=== PATIENT | female | born 1950 | race Caucasian/White ===

== ENCOUNTER 2016-12-04 09:47 | Emergency (ER) | payer OTHER ==
[~2016-12-04] VITALS: Ht 160 cm; Wt 80.0 kg
[~2016-12-04 09:47] MED LIST: ALBU8.5H3 INH; ASPI-781 PO; ATOR20TA38 PO; CLOP75TA27 PO; GABA100C14 PO; GLIP5TAB13 PO; ISOS20TA19 PO; LORA10TA3 PO; METF500T4 PO; METO-448 PO; OMEP20CA9 PO; PRED20TA PO; SERT100T PO
[2016-12-04 09:50] VITALS: Ht 160 cm; Wt 80.0 kg
--- NOTE | 2016-12-04 12:08 | RADRPT ---
PROCEDURE: XR Left Shoulder. CLINICAL INDICATION: Trauma due to a fall. Left shoulder pain. TECHNIQUE: Three views. Frontal internal rotation, frontal external rotation, and scapular Y-view . COMPARISON: No prior study is available for comparison. FINDINGS: There is no fracture or dislocation. The soft tissues are normal. Articular surfaces are intact. There is no lytic or blastic lesion. There is no radiopaque foreign body. IMPRESSION: 1. Normal images of the left shoulder. RPTAT: QQ .Gustavo Salgeuro MD, MD Date Time Electronically viewed and signed by .Gustavo Salguero MD, on 12/04/2016 12:07 .R/
--- NOTE | 2016-12-04 12:09 | RADRPT ---
PROCEDURE: XR Left Hip. CLINICAL INDICATION: Trauma due to a fall. Left hip pain. TECHNIQUE: Two views. Frontal and lateral. COMPARISON: No prior studies are available for comparison. FINDINGS: There is a left hip hemiarthroplasty. This appears satisfactory with no fracture, dislocation, or lo osening. The soft tissues are normal. There is no lytic or blastic lesion. IMPRESSION: 1. Satisfactory postoperative appearance of the left hip. 2. No acute abnormality. RPTAT: QQ .Gustavo Salguero MD, MD Date Time Electronically viewed and signed by .Gustavo Salguero MD, on 12/04/2016 12:08 .R/
--- NOTE | 2016-12-04 12:10 | RADRPT ---
PROCEDURE: XR Femur. CLINICAL INDICATION: Trauma. Left leg pain. TECHNIQUE: AP and lateral views of the left femur were performed. COMPARISON: None. FINDINGS: There is no fracture or dislocation. The soft tissues are normal. There is a left hip hemiarthroplasty. This appears satisfactory with no fracture, dislocation, or lo osening. There is no lytic or blastic lesion. There is no other radiopaque foreign body. IMPRESSION: 1. Satisfactory postoperative appearance of the left hip. 2. Otherwise unremarkable images of the left femur. RPTAT: QQ .Gustavo Salguero MD, Date Time Electronically viewed and signed by .Gustavo Salguero MD, MD on 12/04/2016 12:09 .R/
--- NOTE | 2016-12-04 12:55 | RADRPT ---
PROCEDURE: CT Brain without contrast. CLINICAL INDICATION: Trauma due to a fall. Headache. TECHNIQUE: A CT of the brain without contrast was performed utilizing axial sections from the skul l base through the vertex. The patient was scanned without intravenous contrast enhancement. Sagitta l and coronal reformatted images were obtained using the data from the axial images. Total exam DLP is 630.20 mGy-cm. CTDIvol is 44.33 mGy. One or more of the following dose reduction techniques we re used: Automated exposure control, adjustment of the mA and/or kV according to patient size, use o f iterative reconstruction technique. COMPARISON: None available FINDINGS: The ventricles and cisterns are normal. There is no intracranial hemorrhage or space-occupying lesion. There is an old infarct in the left cerebellar hemisphere superiorly measuring 1.0 x 0.9 cm with ass ociated encephalomalacia. There is also an old infarct in the right parietal lobe posteriorly superi urbano with encephalomalacia in the region measuring 2.2 x 1.8 cm. There is no evidence of recent infa rct. The lópez and white matter differentiation is otherwise normal. There is no skull fracture or lytic lesion. IMPRESSION: 1. 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 2. No evidence of recent infarct. 3. No intracranial hemorrhage. 4. Otherwise unremarkable noncontrast CT scan of the brain. RPTAT: QQ .Gustavo Salguero MD, Date Time Electronically viewed and signed by .Gustavo Salguero MD, on 12/04/2016 12:55 .R/
[2016-12-04 13:43] VITALS: BP 163/71; PULSE 64; RESP 18; TEMP 98
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
== END 2016-12-04 13:43 | disposition home or self-care (01) ==
LOC: FTE 09:47
DX: S79.912A Unspecified injury of left hip, initial encounter (principal); S00.03XA Contusion of scalp, initial encounter; I10 Essential (primary) hypertension; E11.9 Type 2 diabetes mellitus without complications; W06.XXXA Fall from bed, initial encounter; Y92.9 Unspecified place or not applicable; Z79.01 Long term (current) use of anticoagulants; Z79.84 Long term (current) use of oral hypoglycemic drugs; Z79.82 Long term (current) use of aspirin
CPT/HCPCS: 70450; 73030; 73510; 73550